=== PATIENT | female | born 1955 | race Caucasian/White ===

== ENCOUNTER 2016-08-12 10:16 | Observation (INO) | payer OTHER ==
[~2016-08-12] VITALS: Ht 160 cm; Wt 48.2 kg
[~2016-08-12 10:16] MED LIST: ADVAIR DISKUS; AEROECLIPSE1 EACH MC; ALENDRONATE SOD70 MG PO; ALPRAZOLAM0.5 MG PO; CALCIUM +D & M1 EACH PO; CEFUROXIME500 MG PO; COMBIVENT INH14.7 GM IH; DALIRESP500 MCG PO; DURAGESIC50 MCG TD; DURAGESIC75 MCG TD; FENTANYL1 EAC1 PO; FORADIL AEROLI12 MCG IH; FOSAMAX70 MG PO; IPRATR-ALBUTEROL3 ML IH; LEVAQUIN750 MG PO; NAPROSYN250 MG PO; NICOTINE PATCH1 EAC1 TD; OXYCODONE HCL10 MG PO; PAROXETINE HCL30 MG PO; PAXIL20 MG PO; PAXIL30 MG PO; PERCOCET 5/31 TABLET PO; PREDNISONE10 MG PO; PREDNISONE20 MG PO; PROMETHAZINE HC25 M1 PO; PROVENTIL HFA6.7 GM IH; PROVENTIL,2.5 MG/3 M IH; PROVENTIL2.5 MG/3 M IH; QUETIAPINE FUM200 MG PO; REMERON45 MG PO; SEROQUEL100 MG PO; SEROQUEL300 MG PO; SPIRIVA1 INHALATI IH; TESSALON PERLE100 MG PO; THEOCHRON PO; THEOCHRON200 MG PO; VENTOLIN HFA18 GM IH; VITAMIN D5000 UNIT PO; XANAX0.5 MG PO; ZITHROMAX Z-PA250 MG PO
[2016-08-12 11:17] LABS: HEMATOCRIT 38.6 % (36.0-46.0); MCH 28.2 PG (29.0-34.0); MCHC 30.3 G/DL (30.0-36.0); MEAN PLAT.VOLUME 8.7 uM^3 (9.5-12.4); PLATELET COUNT 365 K/uL (156-360); RBC DIS.WIDTH-CV 12.2 % (11.8-14.6); RBC DIS.WIDTH-SD 42.2 % (39-53); RED BLOOD COUNT 4.15 M/uL (3.80-5.20); WHITE BLOOD COUNT 7.2 K/uL (4.1-10.2)
[2016-08-12 11:25] LABS: CHLORIDE 98 mEq/L (99-109); POTASSIUM 4.7 mEq/L (3.7-5.4); SODIUM 142 mEq/L (136-147)
[2016-08-12 11:27] LABS: GLUCOSE 89 mg/dL (70-99)
[2016-08-12 11:29] LABS: ANION GAP 7 MEQ/L (2-14)
[2016-08-12 11:31] LABS: GFR ESTIMATE (CALCULATED) > 59 mL/min/
[2016-08-12 11:32] LABS: UREA NITROGEN (BUN) 24 mg/dL (9-23)
[2016-08-12 11:37] LABS: TROP-I INTERPRETATION NEGATIVE; TROPONIN-I < 0.01 ng/mL (0.0-0.30)
[2016-08-12 12:52] LABS: ADD MIUA? YES; BILIRUBIN NEGATIVE; BLOOD NEGATIVE; COLOR YELLOW ((YELLOW)); GLUCOSE (STRIP) NEGATIVE; KETONES NEGATIVE; LEUKOCYTES NEGATIVE; NITRITE NEGATIVE; PROTEIN (STRIP) 30; SPECIFIC GRAVITY 1.024 (1.000-1.030); UROBILINOGEN 0.2 MG/DL (0.2-1.0)
[2016-08-12 13:06] LABS: BACTERIA RARE /HPF; EPITHELIAL CELLS NONE SEEN /HPF; MUCUS TRACE /LPF; RED BLOOD CELLS 0-5 /HPF (0-5); UCUL ADDED? NO; WHITE BLOOD CELLS NONE SEEN /HPF (0-5)
[2016-08-12] MEDS ORDERED: XANAX1 MG PO (13:16)
[2016-08-12] MEDS ORDERED: ERGOCALCIF50000 UNIT PO (13:17)
[2016-08-12] MEDS ORDERED: DURAGESIC100 MCG TD (13:18)
[2016-08-12] MEDS ORDERED: PAXIL40 MG PO (13:19)
[2016-08-12] MEDS ORDERED: THEO-DUR,THEOC300 MG PO (13:19)
[2016-08-12] MEDS ORDERED: PREDNISONE2.5 MG PO (13:19)
[2016-08-12] MEDS ORDERED: PROLIA60 MG/1 ML SC (13:20)
[2016-08-12] MEDS ORDERED: STRIVERDI RESPIM4 GM IH (13:20)
[2016-08-12] MEDS ORDERED: INCRUSE ELLI62.5 MCG IH (13:20)
[2016-08-12 14:52] VITALS: BP 119/56
[2016-08-12 20:00] VITALS: BP 97/55
[2016-08-12 20:28] LABS: TROP-I INTERPRETATION NEGATIVE; TROPONIN-I < 0.01 ng/mL (0.0-0.30)
[2016-08-12 23:46] VITALS: BP 98/58
[2016-08-13 03:12] VITALS: BP 123/56
[2016-08-13 07:53] LABS: TROP-I INTERPRETATION NEGATIVE; TROPONIN-I < 0.01 ng/mL (0.0-0.30)
[2016-08-13 08:06] VITALS: BP 139/71
[2016-08-13] MEDS ORDERED: CYANOCOBALAM1000 MCG PO (09:44)
[2016-08-13] MEDS ORDERED: PREDNISONE10 MG PO (09:44)
== END 2016-08-13 11:05 | disposition home or self-care (01) ==
LOC: EME 10:16 → EDOF 12:30 → 5WEST 12:30
PROVIDERS: Emergency Medicine; Internal Medicine
DX: J44.1 Chronic obstructive pulmonary disease with (acute) exacerbation (principal); J96.10 Chronic respiratory failure, unspecified whether with hypoxia or hypercapnia; Z99.81 Dependence on supplemental oxygen; G89.29 Other chronic pain; G43.909 Migraine, unspecified, not intractable, without status migrainosus; M81.0 Age-related osteoporosis without current pathological fracture; Z87.891 Personal history of nicotine dependence; D64.9 Anemia, unspecified
CPT/HCPCS: 71010; 76705; 80048; 81003; 82607; 82728; 82746; 84484; 85027; 93005; 94640; 94640 76; 94799; 99202; 99281; 99285; G0378; G8978 GP CH; G8979 GP CH; G8980 GP CH; G8987 GO CH; G8988 GO CH; G8989 GO CH; J1650; J1885; J7512

== ENCOUNTER 2016-08-30 10:26 | Inpatient (IN) | payer OTHER ==
[~2016-08-30] VITALS: Ht 160 cm; Wt 39.2 kg
[~2016-08-30 10:26] MED LIST changes: +CYANOCOBALAM1000 MCG PO; +DURAGESIC100 MCG TD; +ERGOCALCIF50000 UNIT PO; +INCRUSE ELLI62.5 MCG IH; +PAXIL40 MG PO; +PREDNISONE2.5 MG PO; +PROLIA60 MG/1 ML SC; +STRIVERDI RESPIM4 GM IH; +THEO-DUR,THEOC300 MG PO; +XANAX1 MG PO
[2016-08-30 11:28] LABS: MCH 28.6 PG (29.0-34.0); MCHC 31.8 G/DL (30.0-36.0); MCV 90.2 FL (83-99); RBC DIS.WIDTH-CV 12.7 % (11.8-14.6); RBC DIS.WIDTH-SD 42.4 % (39-53); RED BLOOD COUNT 3.77 M/uL (3.80-5.20)
[2016-08-30 11:32] LABS: CHLORIDE 94 mEq/L (99-109); POTASSIUM 3.8 mEq/L (3.7-5.4); SODIUM 137 mEq/L (136-147)
[2016-08-30 11:34] LABS: GLUCOSE 95 mg/dL (70-99)
[2016-08-30 11:36] LABS: ANION GAP 13 MEQ/L (2-14)
[2016-08-30 11:38] LABS: GFR ESTIMATE (CALCULATED) > 59 mL/min/
[2016-08-30 11:39] LABS: UREA NITROGEN (BUN) 21 mg/dL (9-23)
[2016-08-30 11:41] LABS: TROP-I INTERPRETATION NEGATIVE; TROPONIN-I < 0.01 ng/mL (0.0-0.30)
[2016-08-30 12:25] LABS: MEAN PLAT.VOLUME 10.3 uM^3 (9.5-12.4); PLAT.SUFFICIENCY ADEQUATE; PLATELET COUNT 209 K/uL (156-360)
[2016-08-30] MEDS ORDERED: CYANOCOBALAM1000 MCG PO (14:42)
[2016-08-30] MEDS ORDERED: PREDNISONE2.5 MG PO (14:45)
[2016-08-30 17:43] LABS: TROP-I INTERPRETATION NEGATIVE; TROPONIN-I < 0.01 ng/mL (0.0-0.30)
[2016-08-30 20:05] VITALS: BP 108/62
[2016-08-30 22:39] LABS: ADD MIUA? NO; BILIRUBIN NEGATIVE; BLOOD NEGATIVE; COLOR YELLOW ((YELLOW)); GLUCOSE (STRIP) 50; KETONES NEGATIVE; LEUKOCYTES NEGATIVE; NITRITE NEGATIVE; PROTEIN (STRIP) 30; SPECIFIC GRAVITY 1.012 (1.000-1.030); UCUL ADDED? NO; UROBILINOGEN 0.2 MG/DL (0.2-1.0)
[2016-08-30 23:24] VITALS: BP 112/65
[2016-08-31 00:54] LABS: TROP-I INTERPRETATION NEGATIVE; TROPONIN-I < 0.01 ng/mL (0.0-0.30)
[2016-08-31 03:34] VITALS: BP 139/66
[2016-08-31 06:12] LABS: HEMATOCRIT 33.7 % (36.0-46.0); MCH 29.9 PG (29.0-34.0); MCHC 32.3 G/DL (30.0-36.0); MCV 92.3 FL (83-99); MEAN PLAT.VOLUME 9.9 uM^3 (9.5-12.4); PLATELET COUNT 208 K/uL (156-360); RBC DIS.WIDTH-CV 13.2 % (11.8-14.6); RBC DIS.WIDTH-SD 44.4 % (39-53); RED BLOOD COUNT 3.65 M/uL (3.80-5.20); WHITE BLOOD COUNT 20.4 K/uL (4.1-10.2)
[2016-08-31 06:40] LABS: ANION GAP 8 MEQ/L (2-14); CHLORIDE 99 MEQ/L (99-109); GFR ESTIMATE (CALCULATED) > 59 mL/min/; GLUCOSE 131 mg/dL (70-99); POTASSIUM 4.2 MEQ/L (3.7-5.4); SAMPLE HEMOLYSIS CHECK 0; SAMPLE ICTERIC CHECK 0; SAMPLE LIPEMIA CHECK 0; SODIUM 142 MEQ/L (136-147); UREA NITROGEN (BUN) 22 mg/dL (9-23)
[2016-08-31 06:51] LABS: THEOPHYLLINE < 2.5 MCG/ML (10-20)
[2016-08-31 07:48] VITALS: BP 122/59
[2016-08-31 08:20] LABS: INTERNAL CONTROL VALID? YES
[2016-08-31 11:15] VITALS: BP 110/58
[2016-08-31 15:23] VITALS: BP 115/60
[2016-08-31 19:40] VITALS: BP 114/48
[2016-09-01] VITALS (7 sets, daily range): BP systolic 102–132; BP diastolic 52–69
[2016-09-01 07:38] LABS: BASOPHIL COUNT 0.1 K/uL (0-0.1); EOSINOPHIL (%) 0 % (0-5); HEMATOCRIT 32.8 % (36.0-46.0); IMMATURE GRANULOCYTE (%) 2.4 % (0.0-0.7); INSTRUMENT ABS NEUTROPHIL CT 35.7 K/uL; LYMPHOCYTE COUNT 1.2 K/uL (1.0-2.8); MCH 29.9 PG (29.0-34.0); MCHC 31.7 G/DL (30.0-36.0); MCV 94.3 FL (83-99); MEAN PLAT.VOLUME 10.2 uM^3 (9.5-12.4); MONOCYTE (%) 3.3 % (3-12); MONOCYTE COUNT 1.3 K/uL (0-0.8); NEUTROPHIL (%) 90.9 % (45-76); NEUTROPHIL COUNT 35.7 K/uL (1.8-6.4); RBC DIS.WIDTH-CV 13.6 % (11.8-14.6); RBC DIS.WIDTH-SD 46.5 % (39-53); RED BLOOD COUNT 3.48 M/uL (3.80-5.20)
[2016-09-01 07:41] LABS: PLATELET COUNT 285 K/uL (156-360); WHITE BLOOD COUNT 39.3 K/uL (4.1-10.2)
[2016-09-01 08:19] LABS: ANION GAP 15 MEQ/L (2-14); CHLORIDE 95 MEQ/L (99-109); GFR ESTIMATE (CALCULATED) > 59 mL/min/; GLUCOSE 184 mg/dL (70-99); POTASSIUM 3.7 MEQ/L (3.7-5.4); SAMPLE HEMOLYSIS CHECK 0; SAMPLE ICTERIC CHECK 0; SAMPLE LIPEMIA CHECK 0; SODIUM 142 MEQ/L (136-147)
[2016-09-01 08:20] LABS: UREA NITROGEN (BUN) 34 mg/dL (9-23)
[2016-09-02 03:30] VITALS: BP 164/72
[2016-09-02 06:56] LABS: EOSINOPHIL (%) 0 % (0-5); IMMATURE GRANULOCYTE (%) 3.6 % (0.0-0.7); IMMATURE GRANULOCYTE COUNT 0.9 K/uL; INSTRUMENT ABS NEUTROPHIL CT 21.5 K/uL; LYMPHOCYTE COUNT 1.4 K/uL (1.0-2.8); MCH 29.3 PG (29.0-34.0); MCHC 30.9 G/DL (30.0-36.0); MCV 94.7 FL (83-99); MEAN PLAT.VOLUME 9.7 uM^3 (9.5-12.4); MONOCYTE (%) 6.5 % (3-12); MONOCYTE COUNT 1.7 K/uL (0-0.8); NEUTROPHIL (%) 84.2 % (45-76); NEUTROPHIL COUNT 21.5 K/uL (1.8-6.4); PLATELET COUNT 284 K/uL (156-360); RBC DIS.WIDTH-CV 13.9 % (11.8-14.6); RBC DIS.WIDTH-SD 47.9 % (39-53); RED BLOOD COUNT 3.38 M/uL (3.80-5.20); WHITE BLOOD COUNT 25.5 K/uL (4.1-10.2)
[2016-09-02 07:18] LABS: ANION GAP 6 MEQ/L (2-14); CHLORIDE 100 MEQ/L (99-109); GFR ESTIMATE (CALCULATED) > 59 mL/min/; SAMPLE HEMOLYSIS CHECK 2; SAMPLE ICTERIC CHECK 0; SAMPLE LIPEMIA CHECK 0; SODIUM 142 MEQ/L (136-147); UREA NITROGEN (BUN) 24 mg/dL (9-23)
[2016-09-02 07:19] LABS: GLUCOSE 91 mg/dL (70-99); MAGNESIUM ND mg/dl (1.3-2.7); POTASSIUM ND MEQ/L (3.7-5.4)
[2016-09-02 07:48] VITALS: BP 138/63
[2016-09-02 09:59] LABS: POTASSIUM 4.3 MEQ/L (3.7-5.4)
[2016-09-02 15:18] VITALS: BP 127/60
[2016-09-02 23:52] VITALS: BP 108/53
[2016-09-03 05:22] LABS: HEMATOCRIT 31.3 % (36.0-46.0); MCH 29.1 PG (29.0-34.0); MCHC 30.7 G/DL (30.0-36.0); MCV 94.8 FL (83-99); MEAN PLAT.VOLUME 9.4 uM^3 (9.5-12.4); NRBC (%) 0.2 /100 WBC (0-0); PLATELET COUNT 306 K/uL (156-360); RBC DIS.WIDTH-CV 13.9 % (11.8-14.6); RBC DIS.WIDTH-SD 48.8 % (39-53); WHITE BLOOD COUNT 20.5 K/uL (4.1-10.2)
[2016-09-03 05:50] LABS: ANION GAP 5 MEQ/L (2-14); CHLORIDE 102 MEQ/L (99-109); GFR ESTIMATE (CALCULATED) > 59 mL/min/; GLUCOSE 105 mg/dL (70-99); POTASSIUM 4.1 MEQ/L (3.7-5.4); SAMPLE HEMOLYSIS CHECK 0; SAMPLE ICTERIC CHECK 0; SAMPLE LIPEMIA CHECK 0; SODIUM 144 MEQ/L (136-147); UREA NITROGEN (BUN) 20 mg/dL (9-23)
[2016-09-03 08:02] VITALS: BP 138/73
[2016-09-03 08:28] LABS: ABS NEUTROPHIL COUNT 16.1; BAND NEUTROPHILS 3.4 % (0-8.0); BASOPHILS 0.9 %; EOSINOPHIL ABS CT 0; INSTRUMENT ABS NEUTROPHIL CT 14.7 K/uL; LYMPHOCYTES 8.5 % (15.0-45.0); METAMYELOCYTES 0.9 %; MYELOCYTES 2.6 %; SEG.NEUTROPHILS 75.2 % (46.0-76.0)
[2016-09-03 15:31] VITALS: BP 129/60
[2016-09-04 00:36] VITALS: BP 127/59
[2016-09-04 05:54] LABS: HEMATOCRIT 35.2 % (36.0-46.0); MCH 28.9 PG (29.0-34.0); MCHC 30.1 G/DL (30.0-36.0); MCV 95.9 FL (83-99); NRBC (%) 0.3 /100 WBC (0-0); RBC DIS.WIDTH-SD 49.5 % (39-53); RED BLOOD COUNT 3.67 M/uL (3.80-5.20); WHITE BLOOD COUNT 20.4 K/uL (4.1-10.2)
[2016-09-04 06:40] LABS: ANION GAP 4 MEQ/L (2-14); CHLORIDE 100 MEQ/L (99-109); GFR ESTIMATE (CALCULATED) > 59 mL/min/; POTASSIUM 3.8 MEQ/L (3.7-5.4); SAMPLE HEMOLYSIS CHECK 0; SAMPLE ICTERIC CHECK 0; SAMPLE LIPEMIA CHECK 0; SODIUM 144 MEQ/L (136-147); UREA NITROGEN (BUN) 20 mg/dL (9-23)
[2016-09-04 06:41] LABS: GLUCOSE 57 mg/dL (70-99)
[2016-09-04 07:52] VITALS: BP 127/64
[2016-09-04 15:42] VITALS: BP 134/62
[2016-09-04 18:01] LABS: ABS NEUTROPHIL COUNT 14.4; ANISOCYTOSIS 1+; ATYPICAL LYMPHOCYTE 1.3 %; BAND NEUTROPHILS 4.9 % (0-8.0); EOSINOPHIL ABS CT 0; INSTRUMENT ABS NEUTROPHIL CT 12.6 K/uL; LYMPHOCYTES 18.7 % (15.0-45.0); METAMYELOCYTES 2.2 %; MYELOCYTES 3.6 %; NUCLEATED RBC'S 0.4; PLAT.SUFFICIENCY INCREASED; PLATELET CLUMPS PRESENT - PLATELET COUNT APPEARS INCREASED; SEG.NEUTROPHILS 65.8 % (46.0-76.0)
[2016-09-04 18:02] LABS: PLATELET COUNT UNABLE TO REPORT K/uL (156-360)
[2016-09-05] VITALS: BP 128/59
[2016-09-05 08:23] VITALS: BP 124/66
[2016-09-05 08:36] LABS: HEMATOCRIT 33.3 % (36.0-46.0); MCH 29.7 PG (29.0-34.0); MCHC 30.6 G/DL (30.0-36.0); MCV 96.8 FL (83-99); NRBC (%) 0.1 /100 WBC (0-0); PLATELET COUNT 368 K/uL (156-360); RBC DIS.WIDTH-CV 14.2 % (11.8-14.6); RBC DIS.WIDTH-SD 49.7 % (39-53); RED BLOOD COUNT 3.44 M/uL (3.80-5.20)
[2016-09-05] MEDS ORDERED: ADVAIR HFA120 INHAL1 IH (09:00)
[2016-09-05] MEDS ORDERED: LEVOFLOXACIN750 MG PO (09:00)
[2016-09-05] MEDS ORDERED: MUCINEX600 MG PO (09:01)
[2016-09-05] MEDS ORDERED: FLORASTOR250 MG PO (09:08)
[2016-09-05] MEDS ORDERED: DOCUSATE SODIU100 MG PO (09:08)
[2016-09-05] MEDS ORDERED: RAYOS5 MG PO (09:14)
== END 2016-09-05 14:10 | disposition home or self-care (01) | DRG 190 ==
LOC: EME 10:26 → EDOF 14:11 → 5SOUTH 14:11
PROVIDERS: Internal Medicine; Nurse Practitioner Adult Health
DX: J44.0 Chronic obstructive pulmonary disease with (acute) lower respiratory infection (principal); J13 Pneumonia due to Streptococcus pneumoniae; J15.1 Pneumonia due to Pseudomonas; J44.1 Chronic obstructive pulmonary disease with (acute) exacerbation; J96.21 Acute and chronic respiratory failure with hypoxia; E87.2 Acidosis; F32.9 Major depressive disorder, single episode, unspecified; F41.9 Anxiety disorder, unspecified; G89.29 Other chronic pain; M81.0 Age-related osteoporosis without current pathological fracture; G43.909 Migraine, unspecified, not intractable, without status migrainosus; Z66 Do not resuscitate; Z87.891 Personal history of nicotine dependence; Z99.81 Dependence on supplemental oxygen
CPT/HCPCS: 71010; 71020; 80048; 80198; 81003; 83605; 83735; 84484; 84999; 85025; 85027; 87040; 87070; 87077; 87186; 87205; 87449; 93005; 94640; 94640 76; 94667; 94668; 94760; 94799; 99202; 99281; 99285; J0456; J0692; J0696; J1644; J2405; J2920; J2930; J7030; J7050; J7512

== ENCOUNTER 2017-03-11 12:25 | Emergency (ER) | payer OTHER ==
[~2017-03-11] VITALS: Ht 160 cm; Wt 41.3 kg
[~2017-03-11 12:25] MED LIST changes: +ADVAIR HFA120 INHAL1 IH; +DOCUSATE SODIU100 MG PO; +FLORASTOR250 MG PO; +LEVOFLOXACIN750 MG PO; +MUCINEX600 MG PO; +RAYOS5 MG PO
[2017-03-11 14:08] LABS: BASOPHIL (%) 0.1 % (0-1); EOSINOPHIL (%) 0 % (0-5); HEMATOCRIT 33.8 % (36.0-46.0); HEMOGLOBIN 10.9 G/DL (11.9-15.5); IMMATURE GRANULOCYTE (%) 0.2 % (0.0-0.7); LYMPHOCYTE (%) 7.1 % (15-42); LYMPHOCYTE COUNT 0.8 K/uL (1.0-2.8); MCH 29.2 PG (29.0-34.0); MCHC 32.2 G/DL (30.0-36.0); MCV 90.6 FL (83-99); MONOCYTE (%) 5.1 % (3-12); MONOCYTE COUNT 0.5 K/uL (0-0.8); NEUTROPHIL (%) 87.5 % (45-76); NEUTROPHIL COUNT 9.4 K/uL (1.8-6.4); PLATELET COUNT 246 K/uL (156-360); RBC DIS.WIDTH-CV 12.4 % (11.8-14.6); RBC DIS.WIDTH-SD 41.1 % (39-53); RED BLOOD COUNT 3.73 M/uL (3.80-5.20); WHITE BLOOD COUNT 10.7 K/uL (4.1-10.2)
[2017-03-11 14:15] LABS: CHLORIDE 104 mEq/L (99-109); SODIUM 141 mEq/L (136-147)
[2017-03-11 14:17] LABS: GLUCOSE 109 mg/dL (70-99); TOTAL PROTEIN 6.2 g/dL (6.4-8.3)
[2017-03-11 14:19] LABS: TOTAL BILIRUBIN 0.3 mg/dL (0.0-1.0)
[2017-03-11 14:21] LABS: ALKALINE PHOSPHATASE 38 IU/L (3-129); CREATININE 0.7 mg/dL (0.6-1.3); GFR ESTIMATE (CALCULATED) > 59 mL/min/
[2017-03-11 14:22] LABS: UREA NITROGEN (BUN) 19 mg/dL (9-23)
[2017-03-11 14:23] LABS: AST (GOT) 12 IU/L (2-34)
[2017-03-11 14:24] LABS: ALT (GPT) 8 IU/L (3-49)
[2017-03-11 14:27] LABS: TROP-I INTERPRETATION NEGATIVE; TROPONIN-I < 0.01 ng/mL (0.0-0.30)
[2017-03-11] MEDS ORDERED: PREDNISONE20 MG PO (14:31)
[2017-03-11] MEDS ORDERED: DOXYCYCLINE MO100 MG PO (14:31)
[2017-03-11 15:57] VITALS: BP 113/56
== END 2017-03-11 16:10 | disposition home or self-care (01) ==
LOC: EME 12:25
PROVIDERS: Emergency Medicine
DX: J44.1 Chronic obstructive pulmonary disease with (acute) exacerbation (principal); R06.03 Acute respiratory distress; F41.9 Anxiety disorder, unspecified; E83.51 Hypocalcemia; Z87.891 Personal history of nicotine dependence; Z99.81 Dependence on supplemental oxygen; R25.1 Tremor, unspecified; M81.0 Age-related osteoporosis without current pathological fracture
CPT/HCPCS: 71045; 80053; 84484; 85025; 93005; 94640; 99281; 99285; J7040; J7644